=== PATIENT | female | born 1955 | race Caucasian/White ===

== ENCOUNTER 2019-08-24 07:48 | Emergency (ER) | payer BC, OTHER ==
[~2019-08-24] VITALS: Ht 172.7 cm; Wt 77.1 kg
[2019-08-24 08:24] LABS: Basophils # (auto) 0 uL; Basophils % (auto) 0.3 % (0.0-2.0); Eosinophils # (auto) 0 uL; Eosinophils % (auto) 0.3 % (0.0-7.0); Hematocrit 28.9 % (36.0-46.0); Hemoglobin 10.1 g/dL (12.2-16.2); Lymphocytes # (auto) 0.4 uL; Lymphocytes % (auto) 5.7 % (10.0-50.0); Mean Corpuscular Hemoglobin 33.9 pg (28.0-32.0); Monocytes # (auto) 0.4 uL; Monocytes % (auto) 5.1 % (0.0-12.0); Neutrophils # (auto) 6.2 uL; Neutrophils % (auto) 88.6 % (37.0-80.0); Platelet Count (auto) 179 10^3/uL (140-450); Red Blood Cells 2.97 10^6/uL (4.0-5.20); Red Cell Distribution Width 14.7 % (11.8-14.3)
[2019-08-24 08:40] LABS: Alanine Aminotransferase 39 U/L (13-56); Albumin 3.1 g/dL (3.4-5.0); Anion Gap 7 (5-15); Aspartate Aminotransferase 17 U/L (15-37); Blood Urea Nitrogen 30 mg/dL (7-18); Calcium 8.7 mg/dL (8.5-10.1); Carbon Dioxide 29 mmol/L (21-32); Chloride 104 mmol/L (98-107); GFR African American 64 mL/min; GFR Non-African American 53 mL/min; Glucose 113 mg/dL (74-106); Potassium 3.6 mmol/L (3.5-5.1); Sodium 140 mmol/L (136-145)
[2019-08-24 08:41] LABS: INR < 0.93 (0.9-1.15); Partial Thromboplastin Time 20.6 sec (23.64-32.05)
[2019-08-24 08:46] LABS: Alkaline Phosphatase 53 U/L (45-117); Bilirubin, Total 0.4 mg/dL (0.2-1.0); Total Protein 6.5 g/dL (6.4-8.2)
[2019-08-24] MEDS ORDERED: HYDROcodone-ACET 5/325MG TAB PO ONE (11:30)
[2019-08-24 12:19] VITALS: BP 136/68
== END 2019-08-24 12:53 | disposition home or self-care (01) ==
LOC: EDBD 07:48 → ER 07:48
DX: R51 Headache (principal); Z85.3 Personal history of malignant neoplasm of breast; Z85.841 Personal history of malignant neoplasm of brain
CPT/HCPCS: 36415; 70450; 80053; 84484; 85025; 85610; 85730

== ENCOUNTER 2019-11-05 19:35 | Inpatient (IN) | payer BC, MEDICAID ==
[~2019-11-05] VITALS: Ht 165.1 cm; Wt 87.0 kg
[2019-11-05] MEDS ORDERED: ONDANSETRON HCL 4 MG/2 ML VIAL IV ONE (20:30)
[2019-11-05] MEDS ORDERED: SODIUM CHLORIDE 0.9% 1,000 ML IV ONE (20:30)
[2019-11-05 21:50] LABS: Basophils # (auto) 0 uL; Basophils % (auto) 0.2 % (0.0-2.0); Eosinophils # (auto) 0 uL; Eosinophils % (auto) 0.2 % (0.0-7.0); Hematocrit 32.3 % (36.0-46.0); Lymphocytes # (auto) 0.8 uL; Monocytes # (auto) 0.6 uL; Neutrophils # (auto) 6.7 uL; Neutrophils % (auto) 82.7 % (37.0-80.0); White Blood Cell 8.1 10^3/uL (4.4-10.8)
[2019-11-05 21:52] LABS: Hemoglobin 11.2 g/dL (12.2-16.2); Mean Corpuscular Hemoglobin 35.6 pg (28.0-32.0); Mean Corpuscular Hgb Conc. 34.5 g/dL (32.0-36.0); Mean Corpuscular Volume 103.1 fL (80.0-100.0); Monocytes % (auto) 6.9 % (0.0-12.0); Platelet Count (auto) 177 10^3/uL (140-450); Red Blood Cells 3.13 10^6/uL (4.0-5.20); Red Cell Distribution Width 18.5 % (11.8-14.3)
[2019-11-05 22:07] LABS: Albumin 2.6 g/dL (3.4-5.0); Anion Gap 10 (5-15); BUN/Creatinine Ratio 29.8; Blood Urea Nitrogen 25 mg/dL (7-18); Calcium 7.9 mg/dL (8.5-10.1); Carbon Dioxide 23 mmol/L (21-32); Chloride 106 mmol/L (98-107); GFR African American 88 mL/min; GFR Non-African American 73 mL/min; Glucose 119 mg/dL (74-106); Potassium 3.3 mmol/L (3.5-5.1); Sodium 139 mmol/L (136-145)
[2019-11-05 22:12] LABS: Alanine Aminotransferase 39 U/L (13-56); Alkaline Phosphatase 78 U/L (45-117); Aspartate Aminotransferase 17 U/L (15-37); Total Protein 5.9 g/dL (6.4-8.2)
[2019-11-06] MEDS ORDERED: DexAMETHasone SOD PHOS 4 MG/1ML SDV INJ IV ONE
[2019-11-06] MEDS ORDERED: SODIUM CHLORIDE 0.9% 1,000 ML IV SCH (01:08)
[2019-11-06] MEDS ORDERED: HYDROmorphone HCL 2 MG/ML VL IV PRN (01:15)
[2019-11-06] MEDS ORDERED: ALUM & MAG HYDROX-SIMETH LIQ(MAALOX) 30 ML PO PRN (01:15)
[2019-11-06] MEDS ORDERED: HYDROcodone-ACET 5/325MG TAB PO PRN (01:15)
[2019-11-06] MEDS ORDERED: ONDANSETRON HCL 4 MG/2 ML VIAL IV PRN (01:15)
[2019-11-06] MEDS ORDERED: ACETAMINOPHEN 325 MG TAB PO PRN (01:15)
[2019-11-06] MEDS ORDERED: DOCUSATE SOD 100 MG CAP PO PRN (01:15)
[2019-11-06 06:06] LABS: Basophils # (auto) 0 uL; Basophils % (auto) 0.2 % (0.0-2.0); Eosinophils # (auto) 0 uL; Hemoglobin 11.2 g/dL (12.2-16.2); Lymphocytes # (auto) 0.5 uL; Lymphocytes % (auto) 6.5 % (10.0-50.0); Mean Corpuscular Hemoglobin 35.2 pg (28.0-32.0); Mean Corpuscular Volume 100.5 fL (80.0-100.0); Monocytes # (auto) 0.2 uL; Neutrophils # (auto) 7.4 uL; Neutrophils % (auto) 91.3 % (37.0-80.0); Nucleated Red Blood Cells % 0.1 %; Platelet Count (auto) 181 10^3/uL (140-450); Red Blood Cells 3.19 10^6/uL (4.0-5.20); White Blood Cell 8.1 10^3/uL (4.4-10.8)
[2019-11-06 06:22] LABS: Anion Gap 6 (5-15); Blood Urea Nitrogen 22 mg/dL (7-18); Calcium 8.4 mg/dL (8.5-10.1); Carbon Dioxide 25 mmol/L (21-32); Chloride 108 mmol/L (98-107); Glucose 141 mg/dL (74-106); Potassium 4.1 mmol/L (3.5-5.1); Sodium 139 mmol/L (136-145)
[2019-11-06 06:30] LABS: BUN/Creatinine Ratio 28.6; Cholesterol 276 mg/dL (< 200); GFR African American 97 mL/min; GFR Non-African American 80 mL/min; HDL Cholesterol 72 mg/dL (40-59); LDL Cholesterol 168 mg/dL (< 100); Triglycerides 93 mg/dL (< 150)
[2019-11-06 09:00] VITALS: BP 112/69
--- NOTE | 2019-11-06 09:00 | NUR ---
ARRIVES TO [facility]. INITIAL ASSESSMENT. IN NO DISTRESS. ABLE TO COMMUNICATE NEEDS. PRESENTS A GOOD HISTORIAN. NO FAMILY IN THE AREA. HAS ADVANCED DIRECTIVE. PRESENTED TO ER AFTER FALL AT HOME WHERE SHE LIVES ALONE.
[2019-11-06 13:00] VITALS: BP 105/63
--- NOTE | 2019-11-06 14:00 | NUR ---
RETURNS FROM OUT TO RADIOLOGY VIA . TOLERATES 100% LUNCH TRAY. ASKING FOR ANTI SEIZURE MEDICATIONS.
--- NOTE | 2019-11-06 14:09 | NUR ---
PT DOES NOT HAVE A LIST OF HER MEDICATIONS. PCP DR.GERALD TRIPP OFFICE CONTACTED. CURRENT MEDICATIONS LIST OBTAINED. PAGED DR. BRENNER MADE AWARE AND ORDERS HOME MEDS. GIVE KEPPRA NOW. SHE ASKS THAT I CALL PCP AGAIN AND REQUEST MOST RECENT NOTES FROM LAST VISIT ON 11/02. IT IS REPORTED HAD BEEN ON ELEQUIS AND DC'D
[2019-11-06] MEDS ORDERED: LEVE100012 PO (14:27)
[2019-11-06] MEDS ORDERED: DEX4I PO (14:27)
[2019-11-06] MEDS ORDERED: OMEP20TA PO (14:27)
[2019-11-06] MEDS ORDERED: LEVETIRACETAM 500 MG TAB PO ONE (14:45)
--- NOTE | 2019-11-06 15:31 | NUR ---
NO STATES HAS HAD A LOT OF DIARRHEA FOR LAST FEW DAYS. IN INTERVIEW WITH MD THIS WAS NOT MADE KNOWN WHEN ASKED ABOUT FREQUENCY AND LAST BM
--- NOTE | 2019-11-06 16:56 | NUR ---
PT DECLINED P.T. TODAY.
[2019-11-06 17:00] VITALS: BP 136/75
[2019-11-06] MEDS: PANTOPRAZOLE 40 MG TAB PO SCH (18:53)
--- NOTE | 2019-11-06 19:35 | NUR ---
OPENING SHIFT NOTE RECEIVED REPORT FROM DAYSHIFT RN. PATIENT LYING IN BED WITH EYES CLOSED. PATIENT A/O X4, AMBULATORY WITH ASSIST. NO S/S OF DISTRESS OR SOB, NO PAIN NOTED OR REPORTED AT THIS TIME. UPDATED PATIENT ON POC, VERBALIZED UNDERSTANDING. BED LOCKED IN LOW POSITION, CALL LIGHT WITHIN REACH. WILL CONTINUE TO MONITOR PATIENT Q1HR AND PRN.
[2019-11-06] MEDS: SODIUM CHLORIDE 0.9% 1,000 ML IV SCH (20:51)
[2019-11-06] MEDS: LEVETIRACETAM 500 MG TAB PO SCH (21:18)
[2019-11-06] MEDS: DexAMETHasone 4 MG TAB PO SCH (21:18)
[2019-11-06 22:09] VITALS: BP 97/54
[2019-11-06] MEDS: LORazepam 0.5 MG TAB PO PRN (22:25)
[2019-11-07 05:52] VITALS: BP 137/66
[2019-11-07] MEDS: SODIUM CHLORIDE 0.9% 1,000 ML IV SCH (06:33)
[2019-11-07 07:20] LABS: Basophils # (auto) 0 uL; Basophils % (auto) 0.1 % (0.0-2.0); Eosinophils # (auto) 0 uL; Hemoglobin 9.7 g/dL (12.2-16.2); Lymphocytes # (auto) 0.7 uL; Neutrophils # (auto) 7.2 uL
[2019-11-07 07:24] LABS: Hematocrit 27.8 % (36.0-46.0); Lymphocytes % (auto) 8.5 % (10.0-50.0); Mean Corpuscular Hemoglobin 35.7 pg (28.0-32.0); Monocytes # (auto) 0.3 uL; Neutrophils % (auto) 87.4 % (37.0-80.0); Platelet Count (auto) 149 10^3/uL (140-450); Red Blood Cells 2.72 10^6/uL (4.0-5.20); White Blood Cell 8.2 10^3/uL (4.4-10.8)
[2019-11-07 07:27] LABS: Calcium 7.6 mg/dL (8.5-10.1); Potassium 3.9 mmol/L (3.5-5.1)
[2019-11-07 07:29] LABS: BUN/Creatinine Ratio 35.9
--- NOTE | 2019-11-07 07:35 | NUR ---
Opening Shift Note Assumed care of patient, awake and alert. No S/S of distress/SOB, no pain noted or reported at this time. Updated on POC and instructed to call for assistance as needed, patient verbalized understanding. Bed locked in lowest position, side rails up x2, call light within reach. Will continue to monitor for changes Q1hr and PRN.
[2019-11-07 09:00] VITALS: BP 124/67
[2019-11-07] MEDS: DexAMETHasone 4 MG TAB PO SCH ×2 (09:37→21:13)
[2019-11-07] MEDS: PANTOPRAZOLE 40 MG TAB PO SCH (09:37)
[2019-11-07] MEDS: LEVETIRACETAM 500 MG TAB PO SCH ×2 (09:37→21:14)
[2019-11-07] MEDS: ENOXAPARIN SOD 40 MG/0.4 ML SYRINGE SC SCH (09:37)
--- NOTE | 2019-11-07 09:40 | NUR ---
Patient refused Lovenox educated patient on the importance of taking to prevent further blood clots, patient continues to refuse any blood thinners.
[2019-11-07 13:00] VITALS: BP 113/68
--- NOTE | 2019-11-07 16:56 | NUR ---
Patients IV is going bad, refusing new IV Patient states IV is starting to hurt, fluids were turned off and patient does not want an IV attempted at this time, states she is a hard stick and may go home tomorrow. Educated on the need for IV placement in the hospital, patient is okay with current IV staying in place in the even of an emergency but does not want another one placed. Will place a midline order in the event that the patient does not get DC'd tomorrow.
[2019-11-07 17:00] VITALS: BP 103/65
--- NOTE | 2019-11-07 19:30 | NUR ---
OPENING SHIFT NOTE RECEIVED REPORT FROM DAYSHIFT RN. PATIENT SITTING UP IN BED EATING DINNER. PATIENT A/O X4, BEDSIDE COMMODE WITH ASSISTANCE. NO S/S OF DISTRESS OR SOB, NO PAIN NOTED OR REPORTED AT THIS TIME. UPDATED PATIENT ON POC, VERBALIZED UNDERSTANDING. BED LOCKED IN LOW POSITION, CALL LIGHT WITHIN REACH. WILL CONTINUE TO MONITOR PATIENT Q1HR AND PRN.
[2019-11-07] MEDS: LORazepam 0.5 MG TAB PO PRN (21:21)
[2019-11-07 22:00] VITALS: BP 100/56
[2019-11-08 05:32] VITALS: BP 117/71
--- NOTE | 2019-11-08 07:45 | NUR ---
MIDLINE ORDER SPOKE WITH PRIMARY NURSE TO CLARIFY IF PATIENT WAS STILL IN NEED FOR MIDLINE AT THIS TIME. STATES PATIENT HAS IV ACCESS AT THIS TIME THAT NEEDS TO BE CHANGED BUT PATIENT IS REFUSING A NEW IV ACCESS OR A MIDLINE. STATES IF PATIENT DOES NOT GO HOME TODAY SHE WILL NEED IV ACCESS. INFORMED NURSE THAT ULTRASOUND GUIDED IV WILL PROBABLY BE A MORE APPROPRIATE CHOICE FOR HER. RN VERBALIZES UNDERSTANDING. STATES THEY WILL CONTACT US WHEN THEY ARE SURE IF PATIENT STAYS IN THE HOSPITAL.
[2019-11-08 08:00] VITALS: BP 121/64
[2019-11-08 09:00] VITALS: BP 121/64
[2019-11-08] MEDS ORDERED: PANT40T PO (10:25)
[2019-11-08] MEDS ORDERED: LORA-655 PO (10:25)
[2019-11-08] MEDS: DexAMETHasone 4 MG TAB PO SCH (10:58)
[2019-11-08] MEDS: PANTOPRAZOLE 40 MG TAB PO SCH (10:59)
[2019-11-08] MEDS: LEVETIRACETAM 500 MG TAB PO SCH (10:59)
[2019-11-08] MEDS: ENOXAPARIN SOD 40 MG/0.4 ML SYRINGE SC SCH (10:59)
[2019-11-08 11:23] VITALS: BP 121/64
[2019-11-08 13:00] VITALS: BP 107/62
--- NOTE | 2019-11-08 15:01 | NUR ---
Discharge planning per SS consult, patient has orders for home health. Referral sent to [facility] Placed a follow up call, spoke with manager rental Juan David and was advised patient has a third libertarian affiliate that they are not contracted with and they can not accept this patient. Provided a number for [facility] [phone]. [place] An automated system allowed me to scheduled a call back for tomorrow 11.09.19 at 9:30am.
[2019-11-08 17:00] VITALS: BP 116/73
--- NOTE | 2019-11-08 19:15 | NUR ---
ASSUMED CARE, PT. AWAKE, NO C/O PAIN, NO SOB. PT. D/C TONIGHT, WAITING FOR CAREGIVER TO PICK HER UP.
--- NOTE | 2019-11-08 19:57 | NUR ---
PT. HOME WITH CAREGIVER IN STABLE CONDITION.
== END 2019-11-08 19:57 | disposition home or self-care (01) | DRG 312 ==
LOC: EDBD 19:35 → EDUNIT# 19:35 → ER 19:38 → OVERFLOW 19:39 → CENTRAL 11-06 08:59 → TELE-CENTR 11-06 09:09 → CENTRAL 11-06 20:38
PROVIDERS: ADMIT Hospitalist; ATTEND Internal Medicine Nephrology
DX: R55 Syncope and collapse (principal); G93.6 Cerebral edema; C79.31 Secondary malignant neoplasm of brain; C50.919 Malignant neoplasm of unspecified site of unspecified female breast; E86.0 Dehydration; E87.6 Hypokalemia; F17.200 Nicotine dependence, unspecified, uncomplicated; F41.9 Anxiety disorder, unspecified; Z79.01 Long term (current) use of anticoagulants; Z85.841 Personal history of malignant neoplasm of brain; Z85.3 Personal history of malignant neoplasm of breast; Z88.5 Allergy status to narcotic agent; Z88.8 Allergy status to other drugs, medicaments and biological substances
CPT/HCPCS: 36415; 70450; 70486; 71045; 72100; 73502; 80048; 80053; 80061; 84484; 85025; 93005; 95819; 96361; 96374; 96375; G0378; J1100; J2405

== ENCOUNTER 2019-11-13 20:01 | Inpatient (IN) | payer BC, MEDICAID ==
[~2019-11-13] VITALS: Ht 180.3 cm; Wt 83.0 kg
[~2019-11-13 20:01] MED LIST: DEX4I PO; LEVE100012 PO; LORA-655 PO; PANT40T PO
[2019-11-13 21:21] LABS: Basophils # (auto) 0 uL; Basophils % (auto) 0.5 % (0.0-2.0); Eosinophils # (auto) 0 uL; Eosinophils % (auto) 0.3 % (0.0-7.0); Hematocrit 31.4 % (36.0-46.0); Hemoglobin 10.7 g/dL (12.2-16.2); Lymphocytes # (auto) 0.8 uL; Mean Corpuscular Hemoglobin 34.9 pg (28.0-32.0); Mean Corpuscular Volume 102.7 fL (80.0-100.0); Monocytes # (auto) 0.5 uL; Neutrophils # (auto) 7.7 uL; Neutrophils % (auto) 84.2 % (37.0-80.0); Platelet Count (auto) 188 10^3/uL (140-450); Red Blood Cells 3.05 10^6/uL (4.0-5.20); Red Cell Distribution Width 16.7 % (11.8-14.3); White Blood Cell 9.2 10^3/uL (4.4-10.8)
[2019-11-13 21:38] LABS: INR 1.06 (0.9-1.15); Partial Thromboplastin Time 24.5 sec (23.64-32.05)
[2019-11-13 21:42] LABS: Anion Gap 9 (5-15); Blood Urea Nitrogen 33 mg/dL (7-18); Calcium 8.5 mg/dL (8.5-10.1); Carbon Dioxide 26 mmol/L (21-32); Chloride 111 mmol/L (98-107); Glucose 98 mg/dL (74-106); Magnesium 1.9 mg/dL (1.6-2.6); Sodium 146 mmol/L (136-145)
[2019-11-13 21:47] LABS: Alanine Aminotransferase 39 U/L (13-56); Alkaline Phosphatase 75 U/L (45-117); Aspartate Aminotransferase 20 U/L (15-37); BUN/Creatinine Ratio 29.5; Bilirubin, Total 1.1 mg/dL (0.2-1.0); GFR African American 63 mL/min; GFR Non-African American 52 mL/min; Total Protein 6.9 g/dL (6.4-8.2)
[2019-11-13] MEDS ORDERED: POTASSIUM CHL 20 Meq TABLET PO ONE (22:00)
[2019-11-13] MEDS ORDERED: SODIUM CHLORIDE 0.9% 1,000 ML IV ONE (22:00)
[2019-11-14 00:09] LABS: Urine Amorphous Crystal MOD /hpf (None Seen); Urine Bacteria MANY /hpf (None Seen); Urine Blood 1+ /uL (Negative); Urine Hyaline Cast FEW /lpf (0 - 2); Urine Mucus MODERATE (None Seen); Urine Specific Gravity 1.021 (1.001-1.035); Urine WBC 909 /hpf (0 - 5); Urine WBC Clumps PRESENT /hpf (None Seen)
[2019-11-14] MEDS ORDERED: MORPHINE SULFATE 4 MG/ML SYR/VIAL IV ONE (01:15)
[2019-11-14] MEDS ORDERED: ONDANSETRON HCL 4 MG/2 ML VIAL IV ONE (01:15)
[2019-11-14] MEDS ORDERED: ENOXAPARIN SOD 100 MG/1 ML SYRINGE SC ONE (04:45)
[2019-11-14] MEDS ORDERED: TEMAZEPAM 15 MG CAP PO PRN (06:30)
[2019-11-14] MEDS ORDERED: ACETAMINOPHEN 325 MG TAB PO PRN (06:30)
[2019-11-14] MEDS ORDERED: ONDANSETRON HCL 4 MG/2 ML VIAL IV PRN (06:30)
--- NOTE | 2019-11-14 07:30 | NUR ---
RECEIVED REPORT FROM ER RE PATIENT STATUS AND FOR CONTINUATION OF CARE.
--- NOTE | 2019-11-14 07:40 | NUR ---
MS admit from [facility] admitted to tele/MS Patient oriented to primary RN, unit, room, bed, and unit policies regarding patient care and visiting hours. Patient weighed by bed scale,call light within reach patient reminded instructed and encouraged to call for assistance. made comfortable vital signs taken Temp:97.5,HR 82,RR 19, O2 saturation on room air 97%,Moya catheter on place,IV to left AC g#[address] all questions and concerns addressed, patient verbalized understanding.
[2019-11-14 09:02] VITALS: BP 116/72
[2019-11-14] MEDS ORDERED: APIX5TAB (09:19)
[2019-11-14] MEDS: cefTRIAXone 1GM/50ML D5W 50 ML IV SCH (10:24)
[2019-11-14] MEDS: PANTOPRAZOLE 40 MG TAB PO SCH ×2 (10:24→21:20)
[2019-11-14] MEDS: DexAMETHasone 4 MG TAB PO SCH ×2 (10:24→21:27)
[2019-11-14] MEDS: APIXABAN 5 MG TAB PO SCH ×2 (10:24→21:20)
[2019-11-14] MEDS: LEVETIRACETAM 500 MG TAB PO SCH ×2 (10:25→21:21)
[2019-11-14] MEDS: FAMOTIDINE 20 MG TAB PO SCH ×2 (10:25→21:20)
--- NOTE | 2019-11-14 10:25 | NUR ---
MRSA SWAB TO [facility]ES DONE,SPECIMEN SENT TO LAB
[2019-11-14 11:06] LABS: Basophils # (auto) 0 uL; Eosinophils # (auto) 0.1 uL; Hemoglobin 9.4 g/dL (12.2-16.2); Lymphocytes # (auto) 1.1 uL; Monocytes # (auto) 0.4 uL
[2019-11-14 11:07] LABS: Basophils % (auto) 0.4 % (0.0-2.0); Eosinophils % (auto) 0.8 % (0.0-7.0); Hematocrit 27.3 % (36.0-46.0); Lymphocytes % (auto) 14.4 % (10.0-50.0); Mean Corpuscular Hemoglobin 35.4 pg (28.0-32.0); Mean Corpuscular Hgb Conc. 34.3 g/dL (32.0-36.0); Mean Corpuscular Volume 103.4 fL (80.0-100.0); Monocytes % (auto) 5.9 % (0.0-12.0); Neutrophils # (auto) 5.8 uL; Neutrophils % (auto) 78.5 % (37.0-80.0); Platelet Count (auto) 180 10^3/uL (140-450); Red Blood Cells 2.65 10^6/uL (4.0-5.20); Red Cell Distribution Width 17.2 % (11.8-14.3); White Blood Cell 7.4 10^3/uL (4.4-10.8)
--- NOTE | 2019-11-14 11:20 | NUR ---
MD VISIT DR. WINKLER HERE TO SEE AND EXAMINED PATIENT,EXPLAIN DISEASE PROCESS AND PLAN OF CARE,RECEIVED ORDERS.
[2019-11-14] MEDS ORDERED: GADOTERIDOL 279.3mg/mL 20ml Vial IV ONE (11:33)
[2019-11-14 11:49] LABS: Albumin 2.5 g/dL (3.4-5.0); Calcium 7.8 mg/dL (8.5-10.1); Magnesium 1.8 mg/dL (1.6-2.6); Potassium 3.2 mmol/L (3.5-5.1)
[2019-11-14 11:53] LABS: BUN/Creatinine Ratio 38.1; Bilirubin, Total 0.7 mg/dL (0.2-1.0); Total Protein 6.1 g/dL (6.4-8.2)
[2019-11-14] MEDS ORDERED: POTASSIUM CHL 20 Meq TABLET PO ONE (12:30)
[2019-11-14 13:00] VITALS: BP 126/69
--- NOTE | 2019-11-14 14:10 | NUR ---
DR. WINKLER CALLED AND MADE AWARE OF MRI OF BRAIN WITH AND WITHOUT CONTRAST RESULT.
[2019-11-14] MEDS: MAGNESIUM OXIDE 400 MG TAB PO SCH ×2 (14:49→21:21)
[2019-11-14 17:02] VITALS: BP 113/79
--- NOTE | 2019-11-14 19:45 | NUR ---
Opening Shift Note Assumed care of patient, awake and alert, oriented x 4, follows direction, clear speech. On room air with with even and unlabored respirations, no S/S of distress or SOB. PIV left forearm 20g intact and patent. Moya secured and intact, draining to gravity. Patient was turned with minimal assistance, no redness noted to sacrum. Bed low locked position with side rails up x 2 and call light within reach. Instructed on POC and to call for assist PRN, will continue to monitor for changes Q1hr and PRN.
[2019-11-14 21:37] VITALS: BP 105/68
[2019-11-15 05:16] VITALS: BP 106/55
[2019-11-15 06:14] LABS: Basophils # (auto) 0 uL; Basophils % (auto) 0.2 % (0.0-2.0); Eosinophils # (auto) 0 uL; Hemoglobin 9.1 g/dL (12.2-16.2); Lymphocytes # (auto) 0.6 uL; Lymphocytes % (auto) 8.3 % (10.0-50.0); Mean Corpuscular Hemoglobin 34.7 pg (28.0-32.0); Mean Corpuscular Hgb Conc. 33.7 g/dL (32.0-36.0); Mean Corpuscular Volume 103.1 fL (80.0-100.0); Monocytes # (auto) 0.2 uL; Neutrophils # (auto) 5.9 uL; Neutrophils % (auto) 88.5 % (37.0-80.0); Platelet Count (auto) 186 10^3/uL (140-450); Red Blood Cells 2.62 10^6/uL (4.0-5.20); Red Cell Distribution Width 17.1 % (11.8-14.3); White Blood Cell 6.6 10^3/uL (4.4-10.8)
[2019-11-15 06:18] LABS: Albumin 2.4 g/dL (3.4-5.0); Calcium 7.8 mg/dL (8.5-10.1); Magnesium 1.9 mg/dL (1.6-2.6); Potassium 4.1 mmol/L (3.5-5.1)
[2019-11-15 06:23] LABS: BUN/Creatinine Ratio 24.4; Bilirubin, Total 0.5 mg/dL (0.2-1.0)
--- NOTE | 2019-11-15 06:47 | NUR ---
Closing Note patient resting in bed on room air with even and unlabored respirations, no s/s of distress. Sacral Optifoam in place. Bed low locked position with side rails up x 2 and call light within reach, bed alarm on.
[2019-11-15 08:49] VITALS: BP 153/66
[2019-11-15] MEDS: cefTRIAXone 1GM/50ML D5W 50 ML IV SCH (09:02)
[2019-11-15] MEDS: APIXABAN 5 MG TAB PO SCH ×2 (09:33→21:01)
[2019-11-15] MEDS: DexAMETHasone 4 MG TAB PO SCH ×2 (09:33→21:00)
[2019-11-15] MEDS: FAMOTIDINE 20 MG TAB PO SCH ×2 (09:33→21:01)
[2019-11-15] MEDS: MAGNESIUM OXIDE 400 MG TAB PO SCH ×2 (09:33→21:01)
[2019-11-15] MEDS: PANTOPRAZOLE 40 MG TAB PO SCH ×2 (09:34→21:01)
[2019-11-15] MEDS: LEVETIRACETAM 500 MG TAB PO SCH ×2 (09:34→21:01)
--- NOTE | 2019-11-15 12:01 | NUR ---
Discharge planning per SS consult, patient has an order for hospice eval. Referral was sent to [facility] as indicated was the choice of the patient per Sonali FLETCHER.
[2019-11-15 13:00] VITALS: BP 108/61
--- NOTE | 2019-11-15 14:18 | NUR ---
assessment Patient is a 64 year old female who is alert and oriented. Patients cognitive abilities are intact. Prior to admission patient lived home alone and functioned with assistance. Per patient she will return home to her prior living arrangements post discharge. Patient informed me her PCP is Dr Fang. Patient informed me she has a rollator and a cane for home use. Patient informed me she has increased weakness lately and has been assisted at home by her step daughter Beverly. Per patient she will find a family member to move in with her. Patient has been informed of her consult for hospice. Patient informed me he needs hospice at this point. Patient informed me to contact [facility] since they are contracted with her insurance. Patient signed choice letter for [facility]. Stephany WATKINS will satisfy order. I informed patient she has a right to speak to a social media director regarding all care. I informed patient she has a right to participate in any and all discharge planning. Patient does not have a POA and advanced directive. I have offered patient information on POA and advanced directives. I informed the patient the advantages and benefits of having an Advanced Directive. Patient verbalized understanding and agreed to discharge plan. Addendum: 11/15/19 at 1423 by Sonali Sanchez Amended: Links added.
--- NOTE | 2019-11-15 15:30 | NUR ---
re-assessment Per Kaya at [facility], [facility] are down and they cannot verify eligibility. Per Kaya they will keep trying before the end of the day and first thing in the morning. Addendum: 11/15/19 at 1531 by Sonali NIX Amended: Links added.
[2019-11-15 17:01] VITALS: BP 113/73
--- NOTE | 2019-11-15 19:50 | NUR ---
Opening Shift Note Assumed care of patient, awake and alert, oriented x 4, follows direction, clear speech. On room air with with even and unlabored respirations, no S/S of distress or SOB. PIV left forearm 20g intact and patent. Moya secured and intact, draining to gravity. Patient using BSC with standby assistant to the vice president. Bed low locked position with side rails up x 2 and call light within reach. Instructed on POC and to call for assist PRN, will continue to monitor for changes Q1hr and PRN.
[2019-11-15 21:47] VITALS: BP 109/64
[2019-11-16 05:37] VITALS: BP 98/62
--- NOTE | 2019-11-16 06:51 | NUR ---
Closing Note patient resting in bed on room air with even and unlabored respirations, no s/s of distress. Bed low locked position with side rails up x 2 and call light within reach, bed alarm on.
[2019-11-16] MEDS: cefTRIAXone 1GM/50ML D5W 50 ML IV SCH (08:59)
[2019-11-16 09:00] VITALS: BP 113/67
[2019-11-16] MEDS: MAGNESIUM OXIDE 400 MG TAB PO SCH ×2 (09:57→21:40)
[2019-11-16] MEDS: PANTOPRAZOLE 40 MG TAB PO SCH ×2 (09:57→21:40)
[2019-11-16] MEDS: LEVETIRACETAM 500 MG TAB PO SCH ×2 (09:58→21:40)
[2019-11-16] MEDS: APIXABAN 5 MG TAB PO SCH ×2 (09:58→21:40)
[2019-11-16] MEDS: DexAMETHasone 4 MG TAB PO SCH ×2 (09:58→21:39)
[2019-11-16] MEDS: FAMOTIDINE 20 MG TAB PO SCH (10:00)
--- NOTE | 2019-11-16 10:41 | NUR ---
PT SEEN BY DR. WINKLER RECEIVED ORDER FOR [facility] TO ACCESS PORT A CATH, TO FOLLOW UP RECORDS ANALYST FOR HOSPICE. Addendum: 11/16/19 at 1046 by Britni Thompson RN MADE AWARE PT HAD FAMOTIDINE AND PROTONIX ORDERED, RECEIVED ORDER TO DC FAMOTIDINE.
--- NOTE | 2019-11-16 12:21 | NUR ---
Nutrition Assessment Notes please see attached link for complete assessment Est. Needs BW 85 [id number] kcal (20-23 kcal/kgBW), 85-93 gms pro (1.0-1.1 gms/kgBW). Will continue to monitor pertinent labs and reassess nutrient need prn Addendum: 11/16/19 at [address] Amended: Links added.
[2019-11-16 13:00] VITALS: BP 135/65
[2019-11-16] MEDS ORDERED: KEP500T PO (13:13)
--- NOTE | 2019-11-16 15:39 | NUR ---
re-assessment Dr Pimentel and I spoke with patients step daughter Beverly. Beverly informed us that she will be moving in with patient and will be her primary caregiver. Per Beverly she wants patient to continue with hospice discharge plan. Per Beverly she will be here this evening to discuss hospice with patient. Will follow up in the morning. Addendum: 11/16/19 at 1544 by Sonali NIX Amended: Links added.
[2019-11-16 17:00] VITALS: BP 108/70
--- NOTE | 2019-11-16 19:00 | NUR ---
Opening Shift Note Assumed care of patient, awake and alert. No S/S of distress/SOB or pain. Instructed on POC and to call for assist PRN, will continue to monitor for changes Q1hr and PRN.
--- NOTE | 2019-11-16 20:00 | NUR ---
Dr. Villafana at patient bedside with family.
--- NOTE | 2019-11-16 20:30 | NUR ---
Beverly (daughter) will like to be notified when patient is going to be discharged so she can be with the patient and would also like to be notified when hospice arrives to see the patient tomorrow so she can be here to speak with them in person. Day shift RN will be notified.
--- NOTE | 2019-11-16 21:41 | NUR ---
Patient refused 2200 Eliquis. Patient states she is aware of her current DVT but does not want to take the eliquis tonight because it makes her feel very fatigued and ill. Patient states she does not want to go to bed feeling that way and she will take the medication in the morning. Patient understands the risk of not taking her Eliquis.
[2019-11-16 22:00] VITALS: BP 105/62
[2019-11-17 05:33] VITALS: BP 112/67
[2019-11-17 09:00] VITALS: BP 106/63
--- NOTE | 2019-11-17 09:15 | NUR ---
DR. WINKLER AT BEDSIDE DR. WINKLER IS AWARE THAT PT VERBALIZED SHE IS VERY WEAK TO GO HOME ON HOSPICE.
[2019-11-17] MEDS: PANTOPRAZOLE 40 MG TAB PO SCH ×2 (09:29→22:31)
[2019-11-17] MEDS: cefTRIAXone 1GM/50ML D5W 50 ML IV SCH (09:29)
[2019-11-17] MEDS: MAGNESIUM OXIDE 400 MG TAB PO SCH ×2 (09:29→22:31)
[2019-11-17] MEDS: LEVETIRACETAM 500 MG TAB PO SCH ×2 (09:29→22:31)
[2019-11-17] MEDS: APIXABAN 5 MG TAB PO SCH ×2 (09:29→22:31)
[2019-11-17] MEDS: DexAMETHasone 4 MG TAB PO SCH ×2 (09:29→22:31)
[2019-11-17 13:00] VITALS: BP 114/73
--- NOTE | 2019-11-17 16:21 | NUR ---
re-assessment Patient has decided to continue radiation therapy and declined hospice. Per Beverly longo daughter she will be here before noon tomorrow to fruit or nut picker patient. Patient will have 24 hour caregivers. Patient will need a wheelchair for home use. Dr Scruggs has been notified. Addendum: 11/17/19 at 1627 by Sonali NIX Amended: Links added.
[2019-11-17 17:00] VITALS: BP 120/66
--- NOTE | 2019-11-17 17:14 | NUR ---
Discharge planning per [facility] consult, patient has orders for wheelchair. Referral sent to [facility] [phone]
--- NOTE | 2019-11-17 18:32 | NUR ---
wheelchair delivered at bedside.
--- NOTE | 2019-11-17 19:30 | NUR ---
PM NOTE PT RESTING IN BED. NO SIGNS OF DISTRESS. PT UP TO COMMODE AND BACK TO BED. CALL LIGHT WITH IN REACH. BED IN LOW POSITION. WILL CONTINUE TO MONITOR.
[2019-11-17 22:00] VITALS: BP 106/65
[2019-11-18 05:00] VITALS: BP 107/67
--- NOTE | 2019-11-18 07:33 | NUR ---
Opening Shift Note Assumed care of patient, awake and alert. No S/S of distress/SOB or pain. For safety patients bed is locked, in the lowest position with 2 side rails up. Instructed on POC and to call for assist PRN, will continue to monitor for any changes in condition.
[2019-11-18 08:00] VITALS: BP 93/55
[2019-11-18] MEDS: MAGNESIUM OXIDE 400 MG TAB PO SCH (09:38)
[2019-11-18] MEDS: cefTRIAXone 1GM/50ML D5W 50 ML IV SCH (09:38)
[2019-11-18] MEDS: PANTOPRAZOLE 40 MG TAB PO SCH (09:38)
[2019-11-18] MEDS: APIXABAN 5 MG TAB PO SCH (09:38)
[2019-11-18] MEDS: LEVETIRACETAM 500 MG TAB PO SCH (09:38)
[2019-11-18] MEDS: DexAMETHasone 4 MG TAB PO SCH (09:38)
--- NOTE | 2019-11-18 11:00 | NUR ---
Patient step daughter Beverly and family friend/ new residential caregiver Ramonita here to see patient. They stated that the patient is going to have 24 hour care by them both. Beverly is going to do nights and Ramonita is going to take care of her during the day time. Ramonita stated she is a hospice [employer]AW[employer]ER and her phone number to be reached is . Ramonita stated she will be the one to pick up operator patient and to call her when patient is discharged
--- NOTE | 2019-11-18 11:30 | NUR ---
in to see patient and discuss plan of care. Doctor gave verbal note for discharge today.
[2019-11-18 12:00] VITALS: BP 130/72
[2019-11-18 13:00] VITALS: BP 111/74
--- NOTE | 2019-11-18 15:17 | NUR ---
Called step daughter Beverly to notify patient is ready for discharge, no answer. Next called Ramonita the caregiver to notify, she answered and stated she will be here to pick her up.
--- NOTE | 2019-11-18 16:50 | NUR ---
Discharge instructions given as ordered. Encourage to follow up with primary care provider as instructed. All questions and concerns addressed. Patient verbalized understanding. Medication reconciliation form completed and copy given to patient. Home medications held in Pharmacy returned to patient. Port a cath removed with sterile technique, needle intact, and pressure dressing applied. Patient taken to vehicle via wheelchair with all personal belongings, accompanied by staff and caregiver Ramonita. No distress noted at time of departure.
== END 2019-11-18 16:50 | disposition home health service (06) | DRG 690 ==
LOC: EDBD 20:01 → ER 20:05 → UNDOADMIN 11-14 07:41 → OVERFLOW 11-14 07:41 → EAST 11-14 07:45
PROVIDERS: ADMIT Nurse Practitioner; ATTEND Internal Medicine
DX: N39.0 Urinary tract infection, site not specified (principal); C79.31 Secondary malignant neoplasm of brain; I82.401 Acute embolism and thrombosis of unspecified deep veins of right lower extremity; R53.1 Weakness; F17.200 Nicotine dependence, unspecified, uncomplicated; E87.6 Hypokalemia; C50.912 Malignant neoplasm of unspecified site of left female breast; Z86.718 Personal history of other venous thrombosis and embolism; Z79.01 Long term (current) use of anticoagulants; Z85.3 Personal history of malignant neoplasm of breast; Z90.12 Acquired absence of left breast and nipple
CPT/HCPCS: 36415; 70450; 70553; 71045; 80053; 81001; 83735; 83880; 84443; 84484; 85025; 85610; 85730; 86304; 87081; 93971; 96361; 96365; 96372; 96375; G0378; J0696; J1642; J2405